=== PATIENT | male | born 1985 | race Caucasian/White ===

== ENCOUNTER 2016-09-09 17:35 | Observation (INO) | payer OTHER ==
[~2016-09-09] VITALS: Ht 177.8 cm; Wt 82.6 kg
[2016-09-09 18:46] LABS: HEMOGLOBIN 13.5 gm/dl (14.0-17.5); RED BLOOD COUNT 4.48 M/UL (4.20-5.50); WHITE BLOOD COUNT 7.6 K/UL (4.5-11.0)
[2016-09-09 18:55] LABS: BUN/CREATININE RATIO 11 (0-10)
[2016-09-09] MEDS ORDERED: PERCOCET 7.5-31 EACH PO (23:07)
[2016-09-11] MEDS ORDERED: PERCOCET 5/325 T1 EA PO (17:50)
== END 2016-09-11 18:20 | disposition home or self-care (01) ==
LOC: ER1 17:35 → MED SURG 4 21:57 → ZEROF 21:57 → MED SURG 4 22:41
PROVIDERS: Emergency Medicine; ADMIT Internal Medicine
DX: G89.18 Other acute postprocedural pain (principal); M79.605 Pain in left leg; Z79.891 Long term (current) use of opiate analgesic; Z98.890 Other specified postprocedural states
CPT/HCPCS: 36415; 73590; 80048; 85025; 96374; 96375; 96376; 99284; G0378; J1650; J2270; J2405

== ENCOUNTER → 2016-09-23 | Outpatient (CLI) | payer OTHER ==
[~2016-09-23] MED LIST: PERCOCET 5/325 T1 EA PO; PERCOCET 7.5-31 EACH PO
== END ==
LOC: KOH-I 16:44
DX: M25.571 Pain in right ankle and joints of right foot (principal); Z98.890 Other specified postprocedural states
CPT/HCPCS: 73610

== ENCOUNTER 2020-11-14 07:23 | Emergency (ER) | payer OTHER ==
[2020-11-14 07:52] LABS: HEMOGLOBIN 16.9 gm/dl (14.0-17.5); RED BLOOD COUNT 5.36 M/UL (4.20-5.50); WHITE BLOOD COUNT 7.6 K/UL (4.5-11.0)
[2020-11-14 08:40] LABS: BUN/CREATININE RATIO 12 (0-10)
== END 2020-11-14 11:05 | disposition home or self-care (01) ==
LOC: ER1 07:23
PROVIDERS: Emergency Medicine
DX: T40.411A Poisoning by fentanyl or fentanyl analogs, accidental (unintentional), initial encounter (principal); E87.6 Hypokalemia
CPT/HCPCS: 71045; 80053; 80307; 81001; 82550; 82553; 83690; 83735; 83874; 84100; 84484; 85025; 93005; 96372; 96374; 96376; 99285; J2405

== ENCOUNTER → 2021-01-29 | Outpatient (CLI) | payer OTHER | LOC: KOH-I 12:31 | DX: M79.672 Pain in left foot (principal); M25.572 Pain in left ankle and joints of left foot | CPT/HCPCS: 73610; 73630 ==

== ENCOUNTER → 2021-05-24 | Outpatient (CLI) | payer OTHER | LOC: KOH-I 09:34 | DX: M79.642 Pain in left hand (principal); M79.645 Pain in left finger(s) | CPT/HCPCS: 73130; 73140 ==

== ENCOUNTER → 2021-06-27 | Outpatient (CLI) | payer OTHER | LOC: US 13:30 | DX: M79.604 Pain in right leg (principal); R22.31 Localized swelling, mass and lump, right upper limb | CPT/HCPCS: 93971 ==

== ENCOUNTER → 2021-10-03 | Outpatient (CLI) | payer OTHER | LOC: EMI 08:57 → KOH-I 10-04 08:30 | DX: M79.605 Pain in left leg (principal); M76.822 Posterior tibial tendinitis, left leg; M65.872 Other synovitis and tenosynovitis, left ankle and foot | CPT/HCPCS: 73721 ==